=== PATIENT | male | born 1985 | race Two or more races ===

== ENCOUNTER 2017-05-19 21:11 | Emergency (ER) | payer BC ==
[2017-05-19 21:40] VITALS: BP 151/88
--- NOTE | 2017-05-19 21:47 | EDM.PDOC ---
ED HPI GENERAL MEDICAL PROBLEM - General Chief Complaint: Bite:Animal, Insect Stated Complaint: Insect bite Time Seen by Provider: 05/19/17 21:35 Source of Information: Reports: Patient, RN Notes Reviewed History Limitations: Reports: No Limitations - History of Present Illness INITIAL COMMENTS - FREE TEXT/NARRATIVE: 32 year old male presents to the ED with complaints of swelling and itching to his left wrist. He was bit by an insect on Saturday and has a small raised area to the wrist. he says the area has been itchy and uncomfortable. He has not taken any medications or applied any creams to the area. He has no shortness of breath, facial swelling, throat swelling. - Related Data Allergies Allergy/AdvReac Type Severity Reaction Status Date / Time No Known Allergies Allergy Verified 05/19/17 21:40 Home Meds: Home Meds . [No Known Home Meds] 05/19/17 [History] Past Medical History - Past Health History Medical/Surgical History: Denies Medical/Surgical History Social & Family History - Tobacco Use Smoking Status *Q: Never Smoker - Alcohol Use Days Per Week of Alcohol Use: 0 - Recreational Drug Use Recreational Drug Use: No ED ROS GENERAL - Review of Systems Review Of Systems: See Below Constitutional: Reports: No Symptoms. Denies: Fever Skin: Reports: Other (itching and redness to left wrist ) ED EXAM, ANIMAL BITE - Physical Exam Exam: See Below Exam Limited By: No Limitations General Appearance: Alert, WD/WN, No Apparent Distress Respiratory/Chest: No Respiratory Distress Skin Exam: Normal Color, Warm/Dry, Other (minimal redness and swelling to left wrist. There is a small wheel consistent with insect bite. No drainage or sign of infection.) Course - Vital Signs Last Recorded V/S: Last Vital Signs Temp 96.9 F 05/19/17 21:31 Pulse 75 05/19/17 21:31 Resp 16 05/19/17 21:31 BP 151/88 H 05/19/17 21:31 Pulse Ox 98 05/19/17 21:31 Departure - Departure Time of Disposition: 21:46 Disposition: Home, Self-Care 01 Condition: Good Clinical Impression: Insect bite Qualifiers: Encounter type: initial encounter Qualified Code(s): W57.XXXA - Bitten or stung by nonvenomous insect and other nonvenomous arthropods, initial encounter - Discharge Information Forms: ED Department Discharge Additional Instructions: Benadryl cream to area 2-3 times per day for itching You can also take Benadryl 1-2 tablets orally every 6 hours as needed for itching not relieved by cream Benadryl causes sedation so no driving or operating heavy machinery for at least 12 hours Tylenol or Motrin as needed for pain Cold, moist compresses to the wrist for pain and itching.
== END 2017-05-19 22:12 | disposition home or self-care (01) ==
LOC: JD.ED 21:11
DX: S60.862A Insect bite (nonvenomous) of left wrist, initial encounter (principal); W57.XXXA Bitten or stung by nonvenomous insect and other nonvenomous arthropods, initial encounter
CPT/HCPCS: 99282

== ENCOUNTER 2020-09-11 22:00 | Emergency (ER) | payer BC ==
[2020-09-11 22:11] VITALS: BP 166/88; PULSE 57
[2020-09-11] MEDS ORDERED: Lidocaine 1% 10 ML MDV INJECT ONE (22:14)
--- NOTE | 2020-09-11 23:09 | EDM.PDOC ---
ED HPI GENERAL MEDICAL PROBLEM - General Chief Complaint: Laceration Stated Complaint: L INDEX FINGER LAC Time Seen by Provider: 09/11/20 22:10 Source of Information: Reports: Patient History Limitations: Reports: No Limitations - History of Present Illness INITIAL COMMENTS - FREE TEXT/NARRATIVE: The patient presents with a laceration to his left index finger. 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 He is right handed. He is not sure if his tetanus is up to date. In out system it appears his last tetanus was 5 years ago. Onset: Sudden Duration: Minutes: Location: Reports: Upper Extremity, Left (index finger) Quality: Reports: Sharp Severity: Mild Improves with: Reports: None Worsens with: Reports: None Associated Symptoms: Reports: No Other Symptoms Left Finger-Index Pain Score (Numeric/FACES): 5 - Related Data Allergies Allergy/AdvReac Type Severity Reaction Status Date / Time No Known Allergies Allergy Verified 09/11/20 22:11 Home Meds: Home Meds . [No Known Home Meds] 05/19/17 [History] Past Medical History - Past Health History Medical/Surgical History: Denies Medical/Surgical History Social & Family History - Family History Family Medical History: Noncontributory - Tobacco Use Smoking Status *Q: Never Smoker - Caffeine Use Caffeine Use: Reports: None - Recreational Drug Use Recreational Drug Use: No ED ROS GENERAL - Review of Systems Review Of Systems: See Below Constitutional: Reports: No Symptoms HEENT: Reports: No Symptoms Respiratory: Reports: No Symptoms Cardiovascular: Reports: No Symptoms Endocrine: Reports: No Symptoms GI/Abdominal: Reports: No Symptoms : Reports: No Symptoms Musculoskeletal: Reports: Other (laceration to left index finger) ED EXAM, SKIN/RASH Exam: See Below Exam Limited By: No Limitations General Appearance: Alert, No Apparent Distress Ears: Normal External Exam Nose: Normal Inspection Head: Atraumatic, Normocephalic Neck: Normal Inspection Respiratory/Chest: No Respiratory Distress Extremities: Other (laceration to the left indix finger on the volar aspect. No tendon was involved. Good sensation and capillary refill distally.) ED SKIN PROCEDURES - Laceration/Wound Repair Left Digit - 2nd (Index) Appearance: Subcutaneous, Irregular Distal NVT: Neuro & Vascular Intact, No Tendon Injury Anesthetic Type: Digital Local Anesthesia - Lidocaine (Xylocaine): 1% Plain Skin Prep: Saline Exploration/Debridement/Repair: Wound Explored, In a Bloodless Field, Explored to Base Closed with: Sutures Lac/Wound length In cm: 2 Suture Size: 4-0 # of Sutures: 4 Suture Type: Interrupted, Simple Tetanus Status Addressed: Yes Complications: No Course - Vital Signs Last Recorded V/S: Last Vital Signs Temp 97.4 F 09/11/20 22:09 Pulse 57 L 09/11/20 22:09 Resp 19 09/11/20 22:09 BP 166/88 H 09/11/20 22:09 Pulse Ox 98 09/11/20 22:09 - Orders/Labs/Meds Meds: Medications Discontinued Medications Generic Name Dose Route Start Last Admin Trade Name Bernice PRN Reason Stop Dose Admin Lidocaine HCl 10 ml 09/11/20 22:14 09/11/20 22:19 Xylocaine 1% INJECT 09/11/20 22:15 10 ml ONETIME ONE Administration Departure - Departure Time of Disposition: 23:10 Disposition: Home, Self-Care 01 Condition: Good Clinical Impression: Laceration of left index finger Qualifiers: Encounter type: initial encounter Damage to nail status: without damage Foreign body presence: without foreign body Qualified Code(s): S61.211A - Laceration without foreign body of left index finger without damage to nail, initial encounter - Discharge Information *PRESCRIPTION DRUG MONITORING PROGRAM REVIEWED*: Not Applicable *COPY OF PRESCRIPTION DRUG MONITORING REPORT IN PATIENT RYAN: Not Applicable Referrals: PCP,None [Primary Care Provider] - Additional Instructions: Soak your finger in warm soapy water 2 times per day and apply antibiotic ointment after. Have the sutures removed within a week. Look for any signs of infection such as redness, swelling, pain or drainage. If you see any of these signs please return or see your doctor. You may need oral antibiotics. Sepsis Event Note (ED) - Evaluation Sepsis Screening Result: No Definite Risk - Focused Exam Vital Signs: Vital Signs Temp Pulse Resp BP Pulse Ox 09/11/20 22:09 97.4 F 57 L 19 166/88 H 98
== END 2020-09-11 23:15 | disposition home or self-care (01) ==
LOC: JD.ED 22:00
DX: S61.211A Laceration without foreign body of left index finger without damage to nail, initial encounter (principal); W26.8XXA Contact with other sharp object(s), not elsewhere classified, initial encounter
CPT/HCPCS: 12001; 99282; J2001